=== PATIENT | female | born 1960 | race Caucasian/White ===

== ENCOUNTER → 2017-01-08 | Outpatient (CLI) | payer OTHER ==
[~2017-01-08] MED LIST: CALAN80 MG PO; DIABETA 5MG5 MG/TAB PO; GLUCOPHAGE1000 MG PO; LANTUS100 U/ML SQ; NOVOLOG 100U100 U/M1 SQ; UNKNOWN BP MED; ZESTRIL 20MG TA20 MG PO; ZOCOR 10MG10 MG PO
[2017-01-08 10:06] LABS: CREATININE, serum 0.61 mg/dL (0.52-1.25); POTASSIUM 4.5 mmol/L (3.4-5.0)
== END ==
LOC: SUN.DIA 06-17 18:02 → COL.LAB 09:07
DX: E11.9 Type 2 diabetes mellitus without complications (principal); E78.5 Hyperlipidemia, unspecified

== ENCOUNTER 2017-01-18 20:36 | Emergency (ER) | payer OTHER ==
[~2017-01-18] VITALS: Ht 162.6 cm; Wt 88.2 kg
[~2017-01-18 20:36] MED LIST changes: -CALAN80 MG PO; -NOVOLOG 100U100 U/M1 SQ; -UNKNOWN BP MED
[2017-01-18 20:44] VITALS: BP 187/80; TEMP 98.5
[2017-01-18] MEDS ORDERED: NOVOLOG 100U100 U/M1 SQ ×3 (21:20→21:21)
[2017-01-18] MEDS ORDERED: UNKNOWN BP MED (21:23)
[2017-01-18] MEDS ORDERED: CALAN80 MG PO (21:24)
[2017-01-18 21:46] VITALS: PULSE 83
== END 2017-01-18 21:52 | disposition home or self-care (01) ==
LOC: COL.ER 20:36
DX: S50.01XA Contusion of right elbow, initial encounter (principal); W18.09XA Striking against other object with subsequent fall, initial encounter; I10 Essential (primary) hypertension; E11.9 Type 2 diabetes mellitus without complications; Z79.4 Long term (current) use of insulin

== ENCOUNTER → 2017-04-17 | Outpatient (CLI) | payer OTHER ==
[~2017-04-17] MED LIST changes: +CALAN80 MG PO; +NOVOLOG 100U100 U/M1 SQ; +UNKNOWN BP MED
== END ==
LOC: SUN.DIA 11:19
DX: E11.9 Type 2 diabetes mellitus without complications (principal); Z79.4 Long term (current) use of insulin; E78.5 Hyperlipidemia, unspecified; I10 Essential (primary) hypertension; E66.9 Obesity, unspecified; Z68.33 Body mass index [BMI] 33.0-33.9, adult; Z71.3 Dietary counseling and surveillance; Z87.891 Personal history of nicotine dependence

== ENCOUNTER → 2017-06-02 | Outpatient (CLI) | payer OTHER | LOC: SUN.DIA 05-22 09:16 | DX: E11.9 Type 2 diabetes mellitus without complications (principal); Z79.4 Long term (current) use of insulin; E78.5 Hyperlipidemia, unspecified; I10 Essential (primary) hypertension; E66.9 Obesity, unspecified; Z68.33 Body mass index [BMI] 33.0-33.9, adult; Z71.3 Dietary counseling and surveillance; Z87.891 Personal history of nicotine dependence | CPT/HCPCS: G0108 ==

== ENCOUNTER 2017-11-30 18:26 | Emergency (ER) | payer SELFPAY ==
[~2017-11-30] VITALS: Ht 162.6 cm; Wt 89.5 kg
[2017-11-30 18:30] VITALS: BP 169/76; PULSE 74; TEMP 98.2
[2017-11-30] MEDS ORDERED: PRILOSEC 20MG20 MG PO (18:42)
[2017-11-30] MEDS ORDERED: CEPHALEXIN500 M1 PO (19:25)
== END 2017-11-30 19:41 | disposition home or self-care (01) ==
LOC: COL.ER 18:26
DX: S50.12XA Contusion of left forearm, initial encounter (principal); S60.212A Contusion of left wrist, initial encounter; Z79.4 Long term (current) use of insulin; Z23 Encounter for immunization; W01.0XXA Fall on same level from slipping, tripping and stumbling without subsequent striking against object, initial encounter; Y92.410 Unspecified street and highway as the place of occurrence of the external cause

== ENCOUNTER → 2017-12-08 | Outpatient (CLI) | payer SELFPAY ==
[~2017-12-08] MED LIST changes: +CEPHALEXIN500 M1 PO; +PRILOSEC 20MG20 MG PO
== END ==
LOC: SUN.DIA 09:37
DX: E11.9 Type 2 diabetes mellitus without complications (principal); Z79.4 Long term (current) use of insulin; E78.5 Hyperlipidemia, unspecified; I10 Essential (primary) hypertension; E66.9 Obesity, unspecified; Z68.33 Body mass index [BMI] 33.0-33.9, adult; Z71.3 Dietary counseling and surveillance; Z87.891 Personal history of nicotine dependence
CPT/HCPCS: G0108

== ENCOUNTER → 2018-02-17 | Outpatient (CLI) | payer SELFPAY | LOC: ZLAB.AMS 09:00 | DX: E11.9 Type 2 diabetes mellitus without complications (principal); I10 Essential (primary) hypertension ==

== ENCOUNTER → 2018-02-17 | Outpatient (CLI) | payer SELFPAY ==
[2018-02-17 10:27] LABS: HEMATOCRIT 39.3 % (37.0-47.0); HEMOGLOBIN 13.2 g/dl (12.5-16.0)
[2018-02-17 10:41] LABS: ALBUMIN 4.4 gm/dL (3.5-5.0); BILIRUBIN,TOTAL 0.4 mg/dL (0.0-1.0); CALCIUM 9.9 mg/dL (8.4-10.2); CHOLESTEROL RISK RATIO 3.4; CREATININE, serum 0.62 mg/dL (0.52-1.25); POTASSIUM 4.5 mmol/L (3.4-5.0)
== END ==
LOC: SUN.DIA 01-22 16:37
DX: E11.9 Type 2 diabetes mellitus without complications (principal); E78.5 Hyperlipidemia, unspecified; I10 Essential (primary) hypertension; E66.9 Obesity, unspecified
CPT/HCPCS: G0108

== ENCOUNTER → 2019-01-19 | Outpatient (CLI) | payer SELFPAY | LOC: SUN.DIA 08-17 08:40 | DX: E11.9 Type 2 diabetes mellitus without complications (principal); E78.5 Hyperlipidemia, unspecified; I10 Essential (primary) hypertension; E66.9 Obesity, unspecified; Z79.4 Long term (current) use of insulin | CPT/HCPCS: G0108 ==

== ENCOUNTER → 2019-02-19 | Outpatient (CLI) | payer SELFPAY ==
[2019-02-19 09:20] LABS: HEMATOCRIT 39.4 % (37.0-47.0)
[2019-02-19 09:28] LABS: ALBUMIN 4.4 gm/dL (3.5-5.0); BILIRUBIN,TOTAL 0.5 mg/dL (0.0-1.0); CHOLESTEROL RISK RATIO 3.8; CREATININE, serum 0.58 (0.52-1.25); TOTAL PROTEIN 8.1 gm/dL (6.4-8.2)
[2019-02-19 09:58] LABS: THYROID STIMULATING HORMONE 2.24 uIU/mL (0.465-4.680)
== END ==
LOC: COL.LAB 08:46
PROVIDERS: Internal Medicine
DX: I10 Essential (primary) hypertension (principal); E11.9 Type 2 diabetes mellitus without complications; E78.5 Hyperlipidemia, unspecified

== ENCOUNTER → 2019-03-02 | Outpatient (CLI) | payer SELFPAY | LOC: DIA.ED 12:36 | DX: E11.9 Type 2 diabetes mellitus without complications (principal); E78.5 Hyperlipidemia, unspecified; I10 Essential (primary) hypertension; E66.9 Obesity, unspecified | CPT/HCPCS: G0108 ==

== ENCOUNTER → 2020-09-18 | Outpatient (CLI) | payer SELFPAY | LOC: DIA.ED 09-11 10:37 | DX: E11.9 Type 2 diabetes mellitus without complications (principal); Z79.4 Long term (current) use of insulin; E78.5 Hyperlipidemia, unspecified; I10 Essential (primary) hypertension | CPT/HCPCS: G0108 ==